=== PATIENT | female | born 1935 | race Caucasian/White ===

== ENCOUNTER → 2016-11-09 | Outpatient (CLI) | payer MEDICARE, BC ==
[~2016-11-09] MED LIST: AMLO-218; LOSA25TA2 PO
--- NOTE | 2016-11-09 15:48 | RADRPT ---
PROCEDURE: XR bilateral knees. CLINICAL INDICATION: Knee pain. TECHNIQUE: AP weightbearing, lateral weightbearing and sunrise views of each knee are available fo r review. 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 There is no evidence of loosening of the pr osthesis. There is no evidence of hardware failure. The osseous structures are normal in mineralizat ion, architecture and alignment No acute fracture or dislocation is seen.No osseous lesions are iden tified. The soft tissues are unremarkable . there are small suprapatellar joint effusions IMPRESSION: Unremarkable bilateral constrained total knee replacements. Small suprapatellar joint effusions RPTAT: [facility] .Brayan Obrien MD, MD Date Time Electronically viewed and signed by .Brayan Obrien MD, on 11/09/2016 15:47 .B/
--- NOTE | 2016-11-09 15:50 | RADRPT ---
PROCEDURE: XR pelvis / bilateral hips. CLINICAL INDICATION: Hip pain TECHNIQUE: AP pelvis/lateral right and left hip views available for review. COMPARISON: 06/04/2015 FINDINGS: There are bilateral total hip replacements. 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 There is normal mineralization, architecture and alignment. There is no evidence of loosening of th e prosthesis. There is no evidence of hardware failure. No fractures, dislocation or osseous lesions are identified. The joints are unremarkable. There are normal soft tissues. There are surgical cl ips in the left inguinal region. IMPRESSION: Bilateral total hip replacements. Otherwise unremarkable examination. RPTAT: [facility] .Brayan Obrien MD, MD Date Time Electronically viewed and signed by .Brayan Obrien MD, on 11/09/2016 15:50 .B/
--- NOTE | 2016-11-09 22:00 | HKNOTE ---
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 HISTORY OF MAIN COMPLAINT: The patient is an 81-year-old female who has undergone bilateral hip rep lacements and bilateral knee replacements all performed by me between 2008 and 2014. She is having absolutely no pain in any of these joints, but she is very concerned about the cobalt and chromium l evels in her blood. She has had previous tests of her cobalt and chromium levels and the last levels were cobalt 37.2 an d chromium 19. These are above acceptable levels, but one may be somewhat flexible in dealing with a patient who is 81 years old. PHYSICAL EXAMINATION: VITAL SIGNS: Height 5 feet 7 inches, weight 180 pounds. Blood pressure 155/70. Temperature 98.2. GENERAL: She does not have any pain in any of the replaced joints. She is only concerned with the cobalt and chromium levels. On physical examination, a remarkably fit-looking 81-year-old female. She walks without a walking aid. She does not appear to be in pain. BOTH HIPS: Both hips have full range of motion without pain. RIGHT KNEE: Scar of previous knee replacement. Excellent range of motion without pain. LEFT KNEE: Scar of previous knee replacement. Excellent range of motion without pain. IMAGING: Plain x-rays of her pelvis and left hip obtained today were essentially normal. There is no evidence of loosening of the components. Alignment of all the components is satisfactory. The serum cobalt and chromium levels obtained on 06/04/2015 as follows: Olivia 37.2. Chromium 19.0 . DISCUSSION: It is difficult to know what to do with this young lady. She is 81 years old. She had absolutely no pain. The cobalt and chromium levels are elevated above the caution level of 10. MANAGEMENT: Under sterile conditions, the patient's left hip was aspirated. The fluid obtained was perhaps the color of dark whiskey. It is being sent for cell count, culture, and sensitivity as we ll as any sign of infection. The patient will be seen again in a week's time for reevaluation. If the cobalt and chromium levels have increased, then I would recommend that she undergo a revision of the left hip socket. The sally cole and some of the major possible complications were discussed with her in a fair amount of detail . The patient will call us when she is ready for surgery. Dictated By: ASHLEY MOROCHO/GELA Conf#: [id number] DID#: [id number]
== END | disposition home or self-care (01) ==
LOC: HKI 13:46
DX: M25.552 Pain in left hip (principal); Z96.643 Presence of artificial hip joint, bilateral; Z96.653 Presence of artificial knee joint, bilateral
CPT/HCPCS: 20610; 73522; 73562; G0463